=== PATIENT | female | born 1975 | race African-American/Black ===

== ENCOUNTER 2024-01-15 11:08 | Emergency (ER) | payer OTHER ==
[~2024-01-15] VITALS: Ht 167.6 cm; Wt 79.0 kg
[2024-01-15 11:11] VITALS: O2SAT 100
[2024-01-15 12:53] LABS: BASOPHILS % 0.3 % (0.0-2.0); EOSINOPHILS % 3.6 % (0.0-5.0); HEMATOCRIT. 29.6 % (36.0-48.0); HEMOGLOBIN. 9.8 g/dL (12.0-16.0); MEAN CORPUSCULAR HEMOGLOBIN 30.5 pg (28.0-32.0); MEAN CORPUSCULAR HGB CONC 33.1 g/dL (31.0-37.0); MEAN CORPUSCULAR VOLUME 92.3 fL (81.0-99.0); MEAN PLATELET VOLUME 7.1 fl (7.4-10.4); MONOCYTES % 8.4 % (2.0-8.0); NEUTROPHILS % 55.7 % (40.0-76.0); PLATELET 204 x1000/uL (130-400); RED BLOOD CELL COUNT 3.21 mill/uL (4.2-5.4); RED CELL DISTRIBUTION WIDTH 13.5 % (11.6-14.6); WHITE BLOOD COUNT 4.2 x1000/uL (4.5-11.0)
[2024-01-15 13:00] LABS: CHLORIDE 110 mEq/L (98-107); POTASSIUM 3.9 mEq/L (3.5-5.1); SODIUM 143 mEq/L (136-145)
[2024-01-15 13:01] LABS: CALCIUM 9.5 mg/dL (8.7-10.4); CARBON DIOXIDE 26 mEq/L (21-32)
[2024-01-15 13:06] LABS: CREATININE 0.9 mg/dL (0.6-1.0); GLUCOSE 139 mg/dL (70-105); UREA NITROGEN BLOOD 21 mg/dL (9-23)
[2024-01-15 13:07] LABS: TROPONIN I HIGH SENSITIVITY 4 ng/L (3.0-34)
[2024-01-15 15:38] LABS: TROPONIN I HIGH SENSITIVITY < 4 ng/L (3.0-34)
[2024-01-15 16:42] LABS: CLARITY URINE CLEAR (CLEAR); COLOR URINE YELLOW (YELLOW); GLUCOSE URINE 3+ (NEGATIVE); KETONES URINE NEGATIVE (NEGATIVE); LEUKOCYTE ESTERASE URINE NEGATIVE (NEGATIVE); NITRITE URINE NEGATIVE (NEGATIVE); OCCULT BLOOD URINE NEGATIVE (NEGATIVE); PH URINE 6.5 (4.5-8.0); PROTEIN URINE 2+ (NEGATIVE); UROBILINOGEN URINE 0.2 E.U./dL (0.2-1.0)
[2024-01-15 17:11] LABS: BACTERIA URINE TRACE; RBC URINE 0-2 /hpf (0-2); SQUAMOUS EPITHELIAL CELL URINE FEW /lpf (RARE/1+); WBC URINE 0-2 /hpf (0-2); YEAST URINE 1+
[2024-01-15] MEDS ORDERED: TOPUD MT (18:29)
[2024-01-15] MEDS ORDERED: LORA10CA MT (18:29)
[2024-01-15] MEDS ORDERED: FLUT9.9S BOTHNSTRLS (18:29)
[2024-01-15 19:05] VITALS: BP 128/60; PULSE 89; RESP 12; TEMP 36.66960; O2SAT 98
== END 2024-01-15 19:26 | disposition home or self-care (01) ==
LOC: ER 11:08
DX: R42 Dizziness and giddiness (principal); I10 Essential (primary) hypertension; E11.9 Type 2 diabetes mellitus without complications; F41.9 Anxiety disorder, unspecified; Z98.890 Other specified postprocedural states; Z86.73 Personal history of transient ischemic attack (TIA), and cerebral infarction without residual deficits
CPT/HCPCS: 36415; 80048; 81003; 83880; 84484; 85025; 99283